=== PATIENT | male | born 1960 | race Caucasian/White ===

== ENCOUNTER 2025-03-07 07:00 | Outpatient (CLI) | payer MEDICARE, SELFPAY ==
--- NOTE | ~2025-03-07 | MR_ITS ---
EXAMINATION: MR cervical spine wo con DATE: 03/07/2025 07:41 INDICATION: Pain TECHNIQUE: Magnetic resonance imaging (MRI) of the cervical spine was performed without intravenous contrast. Sequences included sagittal T2-weighted FSE, sagittal T2-weighted FS FSE, sagittal T1-weighted FSE, axial MERGE, and axial T2-weighted FSE. COMPARISON: None FINDINGS Degenerative changes are present throughout the cervical spine involving disc spaces uncovertebral joints and pedicles. No acute or aggressive bony or soft tissue process seen. The spinal cord appears normal in signal with no discrete medullary cord lesions or gross myelopathic changes. Visualized portions of the posterior fossa unremarkable. Level specific findings as follows: C2-3: Moderate bilateral neural foraminal narrowing with no spinal canal stenosis or discrete disc protrusion. C3-4: Moderate bilateral neural foraminal narrowing with no spinal canal stenosis or discrete disc protrusion. C4-5: Mild to moderate left and mild right-sided neural foraminal narrowing. No spinal canal stenosis or discrete disc protrusion. C5-6: Moderately severe broad-based disc bulging and/or posterior spondylosis deforming the ventral aspect of the spinal cord but no discrete disc protrusion. No spinal canal stenosis. Moderately severe right and mild to moderate left- sided neural foraminal narrowing. C6-7: No spinal canal stenosis or discrete disc protrusion. Mild to moderate bilateral neural foraminal narrowing, right worse than left. C7-T1: Mild degenerative changes. IMPRESSION: Multilevel degenerative changes, with no spinal canal stenosis or discrete disc protrusions. Varying degrees of neural foraminal narrowing throughout the cervical spine as above; posterior spondylosis is most pronounced at the C5-6 level with mild deformity of the spinal cord as detailed above. Reviewed, dictated and finalized at location A. [facility] [employer] TECHNICIAN IMPRESSION: Multilevel degenerative changes, with no spinal canal stenosis or d iscrete disc protrusions. Varying degrees of neural foraminal narrowing through out the cervical spine as above; posterior spondylosis is most pronounced at th e C5-6 level with mild deformity of the spinal cord as detailed above.
== END 2025-03-07 07:01 | disposition home or self-care (01) ==
PROVIDERS: PCP Internal Medicine Infectious Disease; Visit Provider Nurse Practitioner Family
DX: M47.892 Other spondylosis, cervical region (principal); M48.02 Spinal stenosis, cervical region
CPT/HCPCS: 72141